=== PATIENT | female | born 1980 | race Caucasian/White ===

== ENCOUNTER → 2017-08-27 08:55 | Outpatient (CLI) | payer MEDICAID | END | disposition home or self-care (01) | LOC: D.US 08:55 | DX: R10.9 Unspecified abdominal pain (principal) ==

== ENCOUNTER → 2018-02-17 09:36 | Outpatient (CLI) | payer MEDICAID | END | disposition home or self-care (01) | LOC: D.US 09:30 | DX: I10 Essential (primary) hypertension (principal) ==

== ENCOUNTER → 2018-03-25 09:55 | Outpatient (CLI) | payer MEDICAID | END | disposition home or self-care (01) | LOC: D.US 07:00 | DX: I10 Essential (primary) hypertension (principal) ==